=== PATIENT | female | born 1940 | race Caucasian/White ===

== ENCOUNTER 2023-11-02 11:49 | Emergency (ER) | payer MEDICARE, BC ==
[2023-11-02 13:53] LABS: HEMATOCRIT 29.5 % (34.3-46.0); HEMOGLOBIN 10.4 g/dL (11.2-15.5); MEAN CORPUSCULAR HEMOGLOBIN 32.6 pg (31.6-35.5); MEAN CORPUSCULAR HGB CONC 35.3 g/dL (31.6-35.5); MEAN CORPUSCULAR VOLUME 92.5 fL (81.4-99.0); RED BLOOD CELL COUNT 3.19 M/uL (3.77-5.24); WHITE BLOOD CELL COUNT,WBC 9.5 K/uL (3.2-11.0)
[2023-11-02 14:05] LABS: PLATELET COUNT,PLT 16 K/uL (130-375)
[2023-11-02 14:07] LABS: CALCIUM 8.9 mg/dL (8.5-10.1); CREATININE 0.7 mg/dL (0.6-1.0); EST CRCL DRUG DOSING (CG) 56.72 mL/min; POTASSIUM,K 4.4 mmol/L (3.6-5.2)
[2023-11-02 14:12] LABS: ANION GAP 14.4 mmol/L (5.0-14.0)
[2023-11-02 14:23] LABS: ATYPICAL LYMPHOCYTES RARE; BAND ABSOLUTE MAN 0.38 K/uL; BAND PERCENT MAN 4 % (5-11); LYMPHOCYTES ABSOLUTE MAN 2.85 K/uL (0.8-3.3); LYMPHOCYTES PERCENT MAN 30 % (24-44); METAMYELOCYTE ABSOLUTE MAN 0.19 K/uL; METAMYELOCYTE PERCENT MAN 2 %; MONOCYTES ABSOLUTE MAN 2.19 K/uL (0.20-0.90); MONOCYTES PERCENT MAN 23 % (2-6); MYELOCYTE PERCENT MAN 1 %; SEG NEUTROPHILS PERCENT MAN 40 % (36-66)
[2023-11-02 14:52] LABS: APPEARANCE,URINE CLEAR (CLEAR); BILIRUBIN,URINE NEGATIVE (NEGATIVE); COLOR,URINE YELLOW (YELLOW); GLUCOSE,URINE NEGATIVE (NEGATIVE); KETONES,URINE NEGATIVE (NEGATIVE); LEUKOCYTE ESTERASE,URINE NEGATIVE (NEGATIVE); NITRITE,URINE NEGATIVE (NEGATIVE); OCCULT BLOOD,URINE MODERATE (NEGATIVE); PROTEIN,URINE 30 mg/dL (NEGATIVE); UROBILINOGEN,URINE 0.2 EU/dL (0.2-1.0)
[2023-11-02 14:58] LABS: LYME AB IgG Negative (Negative); LYME AB IgM Negative (Negative)
[2023-11-02 14:59] LABS: AMORPHOUS SEDIMENT,URINE NOT SEEN; BACTERIA,URINE NOT SEEN; EPITHELIAL CELLS,URINE FEW; MUCUS,URINE RARE; RBC,URINE 20-30 (0-5); WBC,URINE 0-5 (0-5)
[2023-11-05 15:00] LABS: ANAPLASMA PHAGOCYTOPHILUM PCR Not Detected; BABESIA MICROTI BY PCR Detected; BABESIA SPECIES BY PCR Detected; EHRLICHIA CHAFFEENSIS BY PCR Not Detected; EHRLICHIA EWINGII/CANIS BY PCR Not Detected; EHRLICHIA MURIS-LIKE BY PCR Not Detected
== END 2023-11-02 15:20 | disposition home or self-care (01) ==
LOC: JP.ED 11:49
DX: R50.9 Fever, unspecified (principal); I10 Essential (primary) hypertension; Z79.82 Long term (current) use of aspirin; Z79.899 Other long term (current) drug therapy; Z79.84 Long term (current) use of oral hypoglycemic drugs; Z90.710 Acquired absence of both cervix and uterus
CPT/HCPCS: 36415; 71046; 80048; 81001; 85025; 86618; 87468; 87469; 87484; 87798; 99285; U0002

== ENCOUNTER 2023-11-05 16:50 | Emergency (ER) | payer MEDICARE, BC | END 2023-11-05 18:26 | disposition home or self-care (01) | LOC: JP.ED 16:50 | DX: B60.00 Babesiosis, unspecified (principal); I10 Essential (primary) hypertension; Z79.84 Long term (current) use of oral hypoglycemic drugs; Z79.899 Other long term (current) drug therapy | CPT/HCPCS: 99284 ==